=== PATIENT | female | born 1995 | race Caucasian/White ===

== ENCOUNTER 2019-01-21 15:51 | Inpatient (IN) | payer SELFPAY ==
[2019-01-21 17:58] LABS: #Basophils 0.1 thou/uL (0.0-0.2); #Eosinphils 0.1 thou/uL (0.0-0.7); #Lymphocytes 2.6 thou/uL (1.20-3.40); #Monocytes 0.5 thou/uL (0.11-0.59); #Neutrophils 5.2 thou/uL (1.40-6.50); %Eosinophils 1.2 % (0.0-10.0); %Lymphocytes 30.7 % (21.0-51.0); %Monocytes 5.5 % (0.0-10.0); %Neutrophils 61.6 % (42.0-75.0); Hemoglobin 14.5 g/dL (12.0-16.0); Mean Corpuscular HGB CONC 33.6 g/dL (32.0-36.0); Mean Corpuscular Hemoglobin 31.2 pg (27.0-31.0); Mean Platelet Volume 7.2 fL (7.4-10.4); Platelet Count 240 thou/uL (130-400); RBC Distribution Width 12.9 % (11.5-14.5); Red Blood Cell (RBC) Count 4.64 mill/uL (4.20-5.40); White Blood Cell (WBC) Count 8.4 thou/uL (4.8-10.8)
[2019-01-21 18:28] LABS: ALT (SGPT) 421 U/L (8-55); AST (SGOT) 193 U/L (5-34); Acetaminophen Less than 6.0 mcg/mL (10.0-30.0); Albumin 4.7 g/dL (3.5-5.0); Alcohol Less than 10 mg/dL (Less than 10); Alkaline Phosphatase 99 U/L (40-150); Anion Gap 15 mmol/L (10-20); BUN (Urea Nitrogen) 13 mg/dL (7.0-18.7); Bilirubin, Total 1.6 mg/dL (0.2-1.2); Calc. Creatinine Clearance 0 mL/min (70-130); Calcium 9.8 mg/dL (7.8-10.44); Carbon Dioxide 22 mmol/L (22-29); Chloride 106 mmol/L (98-107); Estimated GFR-MDRD 86; Globulin 3.6 g/dL (2.4-3.5); Glucose 93 mg/dL (70-105); Potassium 3.7 mmol/L (3.5-5.1); Protein, Total 8.3 g/dL (6.0-8.3); Salicylate Less than 8.0 mg/dL (15.0-30.0); Sodium 139 mmol/L (136-145)
[2019-01-21] MEDS ORDERED: Ondansetron ODT 4 MG TAB ONE (18:44)
[2019-01-21 19:37] LABS: Bilirubin Negative (Negative); Blood, Urine Negative (Negative); Clarity CLEAR (Clear); Glucose, Urine (Dipstick) Negative (Negative); Leukocyte Negative (Negative); Nitrite Negative (Negative); Protein, Urine (Dipstick) Trace mg/dL (Neg-Trace); Specific Gravity, Urine 1.027 (1.002-1.036)
[2019-01-21 19:43] LABS: Pregnancy Test - Urine (BHCG) Negative (Negative); Pregu Control Background? CLEAR/WHITE (CLR/WHITE); Pregu Control Bar Appear? YES (CONTROL BAR); Specific Gravity 1.027 (1.002-1.036)
[2019-01-21 19:53] LABS: Amphetamine Not Detected (NotDetected); Barbiturates Screen Not Detected (NotDetected); Benzodiazepine Screen Not Detected (NotDetected); Cocaine Metabolite Screen Not Detected (NotDetected); Medtox Control Line Valid? VALID (VALID); Medtox Reader # READER 1; Methadone Not Detected (NotDetected); Methamphetamine Not Detected (NotDetected); Opiate Screen Detected (NotDetected); Oxycodone Screen Not Detected (NotDetected); Phencyclidine (PCP) Not Detected (NotDetected); THC/Cannabinoid Screen Detected (NotDetected); Tricyclic Screen Not Detected (NotDetected)
[2019-01-21] MEDS ORDERED: Nicotine 7 MG PATCH TOP SCH (20:45)
--- NOTE | 2019-01-21 22:45 | HP ---
PRIMARY CARE PHYSICIAN: [facility] Call Admission. REASON FOR ADMISSION: Suicidal ideation, suicidal attempt, abnormal LFTs. HISTORY OF PRESENT ILLNESS: A 23-year-old patient who was initially evaluated at [facility]. The patient had suicidal ideation and suicidal attempt. The patient took about 9 Vicodin last night and also drank vodka. The patient was evaluated at [facility] where she was found with abnormal LFTs. Tylenol level was less than 3, and as per report, the patient might have history of hepatitis C. The patient was not cleared from emergency room because of abnormal LFTs and that is why she was transferred to our hospital. The patient does not have any nausea or vomiting. The patient does not have any abdominal pain, fever, or chills. The patient has intermittent use of Tylenol and alcohol. REVIEW OF SYSTEMS: CONSTITUTIONAL: Negative for weight loss or gain, ability to conduct usual activities. SKIN: Negative for rash, itching. EYES: Negative for double vision, pain. ENT/MOUTH: Negative for nose bleeding, neck stiffness, pain, tenderness. CARDIOVASCULAR: Negative for palpitations, dyspnea on exertion, orthopnea. RESPIRATORY: Negative for shortness of breath, wheezing, cough, hemoptysis, fever or night sweats. GASTROINTESTINAL: Negative for poor appetite, abdominal pain, heartburn, nausea, vomiting, constipation, or diarrhea. GENITOURINARY: Negative for urgency, frequency, dysuria, nocturia. MUSCULOSKELETAL: Negative for pain, swelling. NEUROLOGIC/PSYCHIATRIC: Negative for anxiety, depression. ALLERGY/IMMUNOLOGIC: Negative for skin rash, bleeding tendency. Please see my HPI for pertinent positives and negatives. All other review of systems reviewed and negative except as mentioned in HPI. PAST MEDICAL HISTORY: As per report, the patient might have history of hepatitis C. PAST SURGICAL HISTORY: Reviewed and negative. PAST PSYCHIATRIC HISTORY: Anxiety, depression, bipolar disorder, and schizoaffective disorder. The patient has history of multiple inpatient psychiatric admissions. SOCIAL HISTORY: The patient abuses heroin and methamphetamine. The patient smokes cigarettes almost one pack per day. The patient also drinks alcohol. FAMILY HISTORY: No strong family history of premature coronary artery disease, stroke, or cancer. ALLERGIES: PENICILLIN. CURRENT HOME MEDICATIONS: The patient does not have any prescribed medication. EMERGENCY ROOM COURSE: The patient was given nicotine patch and Zofran. PHYSICAL EXAMINATION: VITAL SIGNS: Currently, blood pressure 121/71, pulse 72, respiratory rate 16, temperature 98.0, and saturation is 98% on room air. Weight 63.5 kg. GENERAL: The patient is currently alert, awake, follows commands. No obvious acute distress. HEENT: Head; normocephalic, atraumatic. Eyes; pupils round, reactive to light. Extraocular muscles intact. No icterus. ENT, oropharynx within normal limits. Moist mucous membranes. No oral lesion. No pharyngeal erythema. No exudate. NECK: Supple. No JVD. No thyromegaly. No carotid bruit. No jugular venous distention. LUNGS: Clear to auscultation without any rhonchi or rales. CARDIAC: S1, S2 regular. No murmur. No gallop. No rub. ABDOMEN: Soft. Bowel sounds present. Nontender. Nondistended. No organomegaly. No mass. No suprapubic tenderness. BACK: Unremarkable. No CVA tenderness. EXTREMITIES: Upper extremities, passive movement of all joints are normal. Lower extremities, no edema. Good distal pulsation. SKIN: No skin rash. HEMATOLOGICAL SYSTEM: No lymphadenopathy. NEUROLOGIC: Nonfocal examination. PSYCHIATRIC: Anxious affect. SIGNIFICANT LABORATORY DATA: CBC; WBC 8.4, hemoglobin 14.5, and platelets 240. BMP; sodium 139, potassium 3.7, chloride 106, carbon dioxide 22, BUN 13, creatinine 0.82, glucose 93, and calcium 9.8. LFTs; bilirubin 1.6, AST 193, ALT 421, alkaline phosphatase 99, and albumin 4.7. TSH 0.74. Urinalysis normal. Urine test negative. Urine drug screen positive for opiates and cannabinoids. Serum drug screen; alcohol level less than 6 and acetaminophen level less than 6. ASSESSMENT: 1. Suicidal ideation with suicidal attempt with intentional drug overdose. 2. Abnormal LFTs. 3. Polysubstance abuse including tobacco abuse, cannabinoid abuse, and alcohol abuse. PLAN: Admission to the hospital. Gastroenterology consultation. Obtain right upper quadrant ultrasound. Check hepatitis A, B, C. Repeat LFTs tomorrow. Gentle IV fluid for hydration. Counseling given to avoid smoking and other illicit drugs. Once LFTs improve, then we will consider [facility] consultation for inpatient psychiatric treatment. Deep venous thrombosis prophylaxis, SCD boots. GI prophylaxis, Pepcid 20 mg p.o. b.i.d. CODE STATUS: The patient is full code. DISPOSITION PLAN: Eventually, the patient will need psychiatric placement upon stabilization. Job ID: [id number]
[2019-01-21] MEDS ORDERED: Senokot S 8.6-50 MG TAB PO PRN (23:13)
[2019-01-21] MEDS ORDERED: Ibuprofen 200 MG TAB PO PRN (23:13)
[2019-01-21] MEDS ORDERED: Loperamide HCl 2 MG CAP PO PRN (23:13)
[2019-01-21] MEDS ORDERED: Guaifenesin DM 100-10/5 ML UDCUP PO PRN (23:13)
[2019-01-21] MEDS ORDERED: Ondansetron PF 4 MG/2 ML Vial IVP PRN (23:13)
[2019-01-21] MEDS ORDERED: Bisacodyl 10 MG SUPP PR PRN (23:13)
[2019-01-21] MEDS: Nicotine 21 MG PATCH TD SCH (23:29)
[2019-01-22 05:30] VITALS: BMI 24.1
[2019-01-22 06:12] LABS: #Basophils 0.1 thou/uL (0.0-0.2); #Eosinphils 0.2 thou/uL (0.0-0.7); #Lymphocytes 2.3 thou/uL (1.20-3.40); #Monocytes 0.5 thou/uL (0.11-0.59); #Neutrophils 3.1 thou/uL (1.40-6.50); %Basophils 1.2 % (0.0-1.0); %Eosinophils 3.9 % (0.0-10.0); %Lymphocytes 37.4 % (21.0-51.0); %Monocytes 7.5 % (0.0-10.0); %Neutrophils 50.1 % (42.0-75.0); Hemoglobin 13.6 g/dL (12.0-16.0); Mean Corpuscular HGB CONC 34.1 g/dL (32.0-36.0); Mean Corpuscular Hemoglobin 31.3 pg (27.0-31.0); Mean Corpuscular Volume 91.7 fL (78.0-98.0); Mean Platelet Volume 7.4 fL (7.4-10.4); Platelet Count 216 thou/uL (130-400); RBC Distribution Width 12.8 % (11.5-14.5); Red Blood Cell (RBC) Count 4.34 mill/uL (4.20-5.40); White Blood Cell (WBC) Count 6.1 thou/uL (4.8-10.8)
[2019-01-22 06:37] LABS: ALT (SGPT) 339 U/L (8-55); AST (SGOT) 134 U/L (5-34); Albumin 4.2 g/dL (3.5-5.0); Alkaline Phosphatase 89 U/L (40-150); Anion Gap 12 mmol/L (10-20); BUN (Urea Nitrogen) 14 mg/dL (7.0-18.7); Bilirubin, Total 2.7 mg/dL (0.2-1.2); Calc. Creatinine Clearance 135 mL/min (70-130); Calcium 9.6 mg/dL (7.8-10.44); Carbon Dioxide 23 mmol/L (22-29); Chloride 107 mmol/L (98-107); Estimated GFR-MDRD Greater than 90; Globulin 3.4 g/dL (2.4-3.5); Glucose 107 mg/dL (70-105); Potassium 3.9 mmol/L (3.5-5.1); Protein, Total 7.6 g/dL (6.0-8.3); Sodium 138 mmol/L (136-145)
[2019-01-22 06:53] LABS: Hep A IgM AB Non-Reactive (NonReactive); Hep A IgM S/CO 0.37 S/CO (0-0.79); Hep B Surf Ag Non-Reactive S/CO (NonReactive); Hepatitis B Core IgM Abs Non-Reactive (NonReactive)
[2019-01-22] MEDS: Ondansetron ODT 4 MG TAB PO PRN ×2 (07:31→20:05)
--- NOTE | 2019-01-22 07:38 | ULT ---
RIGHT UPPER QUADRANT ULTRASOUND: INDICATION: Elevated LFTs. COMPARISON: None. FINDINGS: No focal hepatic lesion is evident. Gallbladder is normal in appearance. No sonographic Steel's si gn is reported. Common bile duct measures 2.5 mm. The right kidney measures 12 x 4 x 4.3 cm. The l iver measured 19.36 cm. The visualized aspects of the pancreas are unremarkable-appearing. IMPRESSION: No sonographic abnormality of the right upper quadrant. POS: BH
[2019-01-22 08:32] LABS: Hep C IgG Ab Reflex HepC Qnt (NonReactive)
[2019-01-22 08:33] LABS: Hep C Index 12.42 S/CO (0-0.79)
[2019-01-22] MEDS ORDERED: Lorazepam 1 MG TAB PO PRN ×2 (08:59→12:17)
[2019-01-22] MEDS: Famotidine 20 MG TAB PO SCH ×2 (09:47→20:00)
[2019-01-22] MEDS ORDERED: WATER IVPB SCH (12:00)
[2019-01-22] MEDS ORDERED: ACETYLCYSTEINE IVPB SCH (12:00)
[2019-01-22] MEDS ORDERED: DEXTROSE 5% IVPB SCH (12:00)
[2019-01-22] MEDS ORDERED: Acetylcysteine 20% (200mg/mL) 3,800 MG in Dextrose 5% in Water 500 ML IV SCH (15:00)
[2019-01-22] MEDS ORDERED: Lorazepam 1 MG TAB PO SCH (15:00)
[2019-01-22] MEDS: Lorazepam 1 MG TAB PO PRN (18:53)
[2019-01-22] MEDS: diphenhydrAMINE 25 MG CAP PO PRN ×2 (20:00→23:43)
[2019-01-22] MEDS ORDERED: Acetylcysteine 20% (200mg/mL) 7,600 MG in Dextrose 5% in Water 1,000 ML IV SCH (20:00)
[2019-01-22] MEDS: Zolpidem Tartrate 5 MG TAB PO PRN (22:06)
--- NOTE | 2019-01-22 22:06 | CON ---
DATE OF CONSULTATION: 01/22/2019 REASON FOR CONSULTATION: Elevated LFTs. CONSULTING PHYSICIAN: Tracie Mccloud MD HISTORY OF PRESENT ILLNESS: The patient is a 23-year-old female with past medical history of bipolar disorder, anxiety, schizoaffective disorder, and possible chronic hepatitis C infection, presenting with elevated LFTs. She states that she was in her usual state of health until approximately 24 to 48 hours ago when she was experiencing increased life stressors in the form of relational problems that she could not adequately cope with. Subsequently, she took 9 Vicodin (unknown strength of either the hydrocodone or acetaminophen) in addition to increased amounts of vodka as part of a suicide attempt. Upon recognizing that this was not the proper way to deal with the situation, she was subsequently evaluated at [facility] where she was found to have abnormal LFTs and subsequently transferred to [facility] for further evaluation. At the current point in time, she does endorse increased mild nausea, presence of hot flashes, diaphoresis, and hematochezia. However, the hematochezia has been characterized as bright red blood per rectum that occurred 2 times over the last month with blood both on the toilet paper and in the toilet and the blood coating the stool. This has not since recurred within the last 1 to 2 weeks and she does have a history of constipation and hemorrhoids. She currently denies any actual vomiting, fever, dysphagia, odynophagia, weight loss , lower extremity edema, ascites, jaundice, or encephalopathy. Of note, upon conferring with the patient, she states that she has had an elevated bilirubin in the past and this has been present since she was a child. REVIEW OF SYSTEMS: A 10-category review of systems was obtained with all responses negative except for the pertinent positives as listed in HPI. PAST MEDICAL HISTORY: As per HPI. PAST SURGICAL HISTORY: None. FAMILY HISTORY: Denies any GI malignancies. SOCIAL HISTORY: She endorses a history of IV heroin and methamphetamine use. She also endorses smoking approximately one pack of cigarettes per day in addition to drinking anywhere between 2 and 5 alcoholic beverages daily. OUTPATIENT MEDICATIONS: None. ALLERGIES: PENICILLIN. PHYSICAL EXAMINATION: VITAL SIGNS: Temperature 98.4, pulse 76, blood pressure 114/71, respiratory rate 20, saturating 99% on room air. GENERAL: The patient was lying in bed, in no acute distress. Alert and oriented x4. HEENT: Normocephalic, atraumatic. NECK: Supple. No JVD or scleral icterus noted. CARDIOVASCULAR: Regular rate and rhythm with no discernible murmurs, gallops, or rubs. RESPIRATORY: Clear to auscultation bilaterally with no discernible wheezes or rales. ABDOMEN: Normoactive bowel sounds. Soft, nondistended, mild tenderness to palpation in the midepigastric region. EXTREMITIES: No cyanosis, clubbing, or edema. LABORATORY DATA: CBC with a white blood cell count of 6.1, hemoglobin 13.6, hematocrit 39.8, platelets 216. Chemistry with a sodium of 138, potassium 3.9, chloride 107, CO2 of 23, BUN 14, creatinine 0.78, glucose 107, AST 134, ALT 339, alkaline phosphatase 89, total bilirubin 2.7, albumin 4.2, lipase 37. IMAGING DATA: Right upper quadrant abdominal ultrasound was obtained on January 22, 2019, which showed a normal gallbladder as well as the common bile duct measuring 2.5 mm in size. There were no other findings during this particular study. ASSESSMENT AND PLAN: The patient is a 23-year-old female with past medical history of bipolar disorder, anxiety, schizoaffective disorder, and chronic hepatitis C infection, presenting with acute acetaminophen ingestion and possible toxicity. Elevated liver function tests/acetaminophen ingestion. The patient is presenting with a recent history of increased life stressors that prompted her to take a undetermined amount of acetaminophen contained within the presence of Vicodin (she obtained off the street, so it is unknown how much acetaminophen was contained within these pills). Upon evaluation in the [place] [facility], she was given a dose of N-acetylcysteine, but noted to have significantly elevated liver function tests. Based on the degree of elevation of her liver function tests, it seems to be more elevated than expected for chronic hepatitis C infection alone. Given that information acetaminophen toxicity and/or other underlying liver abnormalities could be potentially contributing to this elevation. They are currently downtrending, which lends credence more towards a medication or drug-induced liver injury. Per guidelines given the recent ingestion of acetaminophen associated with any significant liver injury, the use of N-acetylcysteine is indicated. RECOMMENDATIONS: 1. We would continue to trend LFTs and INR daily to determine response to treatment and/or possible worsening hepatic function. 2. We would continue to monitor neurological status daily as encephalopathy could be a harbinger of worsening hepatic function. 3. We will follow up on HIV serology that has already been drawn. If her liver function tests do not continue to fall, then I would consider a full liver workup. 4. We would obtain a direct bilirubin for possible Gilbert syndrome. 5. We would continue N-acetylcysteine in IV format over the 21 hour protocol given her acute liver injury in association with significant acetaminophen ingestion. 6. We will continue to follow. Please call with any questions. Job ID: [id number]
--- NOTE | 2019-01-22 22:44 | PDOC.PN ---
- Subjective Encounter Start Date: 01/22/19 Encounter Start Time: 13:30 Patient seen and examined for drug overdose. Anxious. Wants to leave AMA. No new complaints. No overnight events - Objective Resuscitation Status - Order Detail: 01/21/19 22:18 Resuscitation Status Routine Resuscitation Status: FULL: Full Resuscitation MAR Reviewed: Yes Vital Signs & Weight: Vital Signs (12 hours) Temp Pulse Resp BP Pulse Ox 01/22/19 19:00 98 F 79 16 111/74 99 01/22/19 15:40 98.4 F 76 20 114/71 99 01/22/19 11:54 98.5 F 77 16 122/80 100 Weight Weight 168 lb 6 oz I&O: 01/21/19 01/22/19 01/23/19 06:59 06:59 06:59 Intake Total 450 Balance 450 Result Diagrams: 01/23/19 04:25 01/23/19 04:25 Additional Labs: Laboratory Tests 01/22/19 05:55 Total Bilirubin 2.7 H AST 134 H ALT 339 H Radiology Reviewed by me: Yes (RUQ USG - neg) Phys Exam - Physical Examination Constitutional: NAD Neck: no JVD Respiratory: no wheezing, no rales, no rhonchi, clear to auscultation bilateral Cardiovascular: RRR, no rub no heaves/pulsations Gastrointestinal: soft, non-tender, no distention, positive bowel sounds Musculoskeletal: no edema Neurological: non-focal, normal sensation, moves all 4 limbs Psychiatric: normal affect, A&O x 3 Dx/Plan - Plan DVT proph w/SCDs IMPRESSION: Drug overdose/Suicidal attempt Abn LFTs ?Chronic Hep C Cannabis/tobacco/alcohol abuse Anxiety PLAN: Mucomyst protocol initiated per GI Avoid hepatotoxic meds Add Ativan PRN HIV testing in AM Hep C PCR sent AM labs Cont Sitter MR eval when stable Review of Systems - Review of Systems Respiratory: negative: Cough, Dry, Shortness of Breath, Hemoptysis, SOB with Excertion, Pleuritic Pain, Sputum, Wheezing Cardiovascular: negative: chest pain, palpitations, orthopnea, paroxysmal nocturnal dyspnea, edema, light headedness, other Gastrointestinal: negative: Nausea, Vomiting, Abdominal Pain, Diarrhea, Constipation, Melena, Hematochezia, Other Genitourinary: negative: Dysuria, Frequency, Incontinence, Hematuria, Retention , Other - Medications/Allergies Allergies/Adverse Reactions: Allergies Allergy/AdvReac Type Severity Reaction Status Date / Time Penicillins Allergy Severe Anaphylaxis Verified 01/22/19 05:09 adhesive AdvReac Mild Rash Verified 01/22/19 05:08 Medications: Current Medications Bisacodyl (Dulcolax) 10 mg [place] DAILYPRN PRN PRN Reason: Constipation Diphenhydramine HCl (Benadryl) 25 mg PO Q4H PRN PRN Reason: Itching Last Admin: 01/22/19 20:00 Dose: 25 mg Famotidine (Pepcid) 20 mg PO BID [facility] Last Admin: 01/22/19 20:00 Dose: 20 mg Guaifenesin/Dextromethorphan (Robitussin Dm) 15 ml PO Q4H PRN PRN Reason: Cough Acetylcysteine 7,600 mg/ (Dextrose/Water) 1,038 mls @ 64.875 mls/hr IV ONE [facility] Stop: 01/23/19 12:00 Ibuprofen (Motrin) 400 mg PO Q6H PRN PRN Reason: Fever>101/(Mi/Mod/Sev) Pain Loperamide HCl (Imodium) 2 mg PO PRN PRN PRN Reason: Diarrhea/Loose Stools Lorazepam (Ativan) 0.5 mg PO Q4H PRN PRN Reason: Anxiety Stop: 01/23/19 09:00 Last Admin: 01/22/19 18:53 Dose: 0.5 mg Nicotine (Nicoderm Patch) 21 mg TD Q24HR [facility] Last Admin: 01/21/19 23:29 Dose: 21 mg Ondansetron HCl (Zofran Odt) 4 mg PO Q6H PRN PRN Reason: Nausea/Vomiting Last Admin: 01/22/19 20:05 Dose: 4 mg Ondansetron HCl (Zofran) 4 mg IVP Q6H PRN PRN Reason: Nausea/Vomiting Senna/Docusate Sodium (Senokot S) 2 tab PO BID PRN PRN Reason: Constipation Sodium Chloride (Flush - Normal Saline) 10 ml IVF Q12HR AC Sodium Chloride (Flush - Normal Saline) 10 ml IVF PRN PRN PRN Reason: Saline Flush Zolpidem Tartrate (Ambien) 5 mg PO HSPRN PRN PRN Reason: Insomnia Last Admin: 01/22/19 22:06 Dose: 5 mg
[2019-01-22] MEDS: Nicotine 21 MG PATCH TD SCH (23:41)
[2019-01-23] MEDS: Lorazepam 1 MG TAB PO PRN ×4 (04:55→17:48)
[2019-01-23 05:18] LABS: Hemoglobin 13.7 g/dL (12.0-16.0); Platelet Count 207 thou/uL (130-400)
[2019-01-23 05:21] LABS: INR-International Normal Ratio 1.1; Prothrombin Time 14.2 SEC (12.0-14.7)
[2019-01-23 05:44] LABS: ALT (SGPT) 275 U/L (8-55); AST (SGOT) 90 U/L (5-34); Albumin 4.1 g/dL (3.5-5.0); Alkaline Phosphatase 75 U/L (40-150); Anion Gap 12 mmol/L (10-20); BUN (Urea Nitrogen) 14 mg/dL (7.0-18.7); Bilirubin, Direct 0.7 mg/dL (0.1-0.3); Bilirubin, Total 2.5 mg/dL (0.2-1.2); Calc. Creatinine Clearance 139 mL/min (70-130); Calcium 9.5 mg/dL (7.8-10.44); Carbon Dioxide 25 mmol/L (22-29); Chloride 106 mmol/L (98-107); Estimated GFR-MDRD Greater than 90; Glucose 97 mg/dL (70-105); Magnesium 2.2 mg/dL (1.6-2.6); Potassium 3.9 mmol/L (3.5-5.1); Protein, Total 7.3 g/dL (6.0-8.3); Sodium 139 mmol/L (136-145)
[2019-01-23 06:00] LABS: HIV (1/2) Antibody/Antigen Non-Reactive (NonReactive); HIV 1/2 INDEX 0.11 S/CO (<1.00)
[2019-01-23] MEDS ORDERED: Dextrose 5 %-0.45 % NaCl 1,000 ML IV SCH (07:45)
[2019-01-23] MEDS: Dextrose 5 %-0.45 % NaCl 1,000 ML IV SCH ×2 (09:12→20:43)
[2019-01-23] MEDS: Famotidine 20 MG TAB PO SCH ×2 (09:16→20:42)
[2019-01-23] MEDS: diphenhydrAMINE 25 MG CAP PO PRN ×2 (12:48→20:41)
--- NOTE | 2019-01-23 16:21 | PRG ---
DATE OF SERVICE: 01/23/2019 REASON FOR CONSULTATION: Elevated LFTs. SUBJECTIVE: Overnight, the patient did well with administration of Ambien, was able to get a good night's sleep today. Today, she states that she continues to feel restless/anxious, but otherwise has denied any other symptoms. Currently, denies any nausea, vomiting, fevers, chills, abdominal pain, GI bleeding, jaundice, encephalopathy, ascites, or lower extremity edema. OBJECTIVE: VITAL SIGNS: Temperature 98.5, pulse 87, blood pressure 118/72, respiratory rate 18, saturating 99% on room air. GENERAL: The patient was lying in bed, in no acute distress. Alert and oriented x4. CARDIOVASCULAR: Regular rate and rhythm. RESPIRATORY: Clear to auscultation bilaterally. ABDOMEN: Normoactive bowel sounds. Soft, nontender, nondistended. EXTREMITIES: No cyanosis, clubbing, or edema. LABORATORY DATA: CBC with a hemoglobin of 13.7, hematocrit 40.5. INR 1.1. Chemistry with a sodium of 139, potassium 3.9, chloride 106, CO2 of 25, BUN 14, creatinine 0.76. AST 90, ALT 275, alkaline phosphatase 75, total bilirubin 2.5. HIV negative. IMAGING DATA: No current GI imaging is available for review. ASSESSMENT AND PLAN: The patient is a 23-year-old female with past medical history of bipolar disorder, anxiety, schizoaffective disorder, and chronic hepatitis C infection, presenting with acute acetaminophen ingestion and possible toxicity. Elevated liver function tests/acetaminophen ingestion. The patient presented with a recent history of increased life stressors that prompted her to take an increased amount of acetaminophen in the form of Vicodin. However, upon evaluation by [facility], she was noted to have significantly elevated LFTs and was subsequently transferred to [facility]. During this hospitalization, her LFTs have continued to downtrend with treatment with N-acetylcysteine and she is currently, relatively asymptomatic at this time. Given that all of her LFTs are currently downtrending, the likely etiology for her elevated LFTs may have been a combination of the acetaminophen toxicity mixed with alcohol ingestion on top of chronic hepatitis C infection. RECOMMENDATIONS: 1. Would continue to trend LFTs and INR daily to determine response to treatment. 2. We will continue to monitor neurological status daily as encephalopathy could be a harbinger of worsening hepatic function. 3. Would complete 21-hour protocol for N-acetylcysteine in this patient with acute liver injury associated with increased acetaminophen ingestion. 4. From a GI standpoint, the transition to [facility] can be started with the patient discharged as early as tomorrow. We will sign off at this time. Please call with any questions. Job ID: [id number]
[2019-01-23 17:27] LABS: INR-International Normal Ratio 1.1; PTT 29.2 SEC (22.9-36.1)
[2019-01-23 17:47] LABS: ALT (SGPT) 305 U/L (8-55); AST (SGOT) 97 U/L (5-34); Acetaminophen Less than 6.0 mcg/mL (10.0-30.0); Albumin 4.7 g/dL (3.5-5.0); Alkaline Phosphatase 87 U/L (40-150); Bilirubin, Direct 0.8 mg/dL (0.1-0.3); Bilirubin, Total 2.4 mg/dL (0.2-1.2); Protein, Total 8.4 g/dL (6.0-8.3)
[2019-01-23] MEDS ORDERED: Nicotine 14 MG PATCH TD PRN (19:17)
[2019-01-23] MEDS ORDERED: Loperamide HCl 2 MG CAP PO PRN (19:17)
[2019-01-23] MEDS: Zolpidem Tartrate 5 MG TAB PO PRN (22:13)
--- NOTE | 2019-01-23 22:21 | PDOC.PN ---
- Subjective Encounter Start Date: 01/23/19 Encounter Start Time: 18:00 Patient seen and examined for drug overdose. Feeling better. No N/V/Abd pain. No new complaints. No overnight events - Objective Resuscitation Status - Order Detail: 01/21/19 22:18 Resuscitation Status Routine Resuscitation Status: FULL: Full Resuscitation MAR Reviewed: Yes Vital Signs & Weight: Vital Signs (12 hours) Temp Pulse Resp BP Pulse Ox 01/23/19 21:00 97.4 F L 95 18 106/70 98 01/23/19 12:30 98.5 F 87 118/72 99 Weight Weight 168 lb 6 oz I&O: 01/22/19 01/23/19 01/24/19 06:59 06:59 06:59 Intake Total 450 1460 Balance 450 1460 Result Diagrams: 01/23/19 04:25 01/23/19 04:25 Radiology Reviewed by me: No (Abd USG - reviewed) Phys Exam - Physical Examination Constitutional: NAD Respiratory: no wheezing, no rhonchi Cardiovascular: RRR, no rub Gastrointestinal: soft, non-tender, positive bowel sounds Musculoskeletal: no edema Neurological: moves all 4 limbs Dx/Plan - Plan DVT proph w/SCDs IMPRESSION: Drug overdose/Suicidal attempt s/p Mucomyst protocol Abn LFTs ?Chronic Hep C Cannabis/tobacco/alcohol abuse Anxiety PLAN: Cont Sitter [facility] eval Stable for dc DC IVF at dc Review of Systems - Medications/Allergies Allergies/Adverse Reactions: Allergies Allergy/AdvReac Type Severity Reaction Status Date / Time Penicillins Allergy Severe Anaphylaxis Verified 01/22/19 05:09 adhesive AdvReac Mild Rash Verified 01/22/19 05:08 Medications: Current Medications Bisacodyl (Dulcolax) 10 mg [place] DAILYPRN PRN PRN Reason: Constipation Diphenhydramine HCl (Benadryl) 25 mg PO Q4H PRN PRN Reason: Itching Last Admin: 01/23/19 20:41 Dose: 25 mg Famotidine (Pepcid) 20 mg PO BID [facility] Last Admin: 01/23/19 20:42 Dose: 20 mg Guaifenesin/Dextromethorphan (Robitussin Dm) 15 ml PO Q4H PRN PRN Reason: Cough Dextrose/Sodium Chloride (D5 1/2 Ns) 1,000 mls @ 70 mls/hr IV .[id number] [facility] Last Admin: 01/23/19 20:43 Dose: 1,000 mls Ibuprofen (Motrin) 400 mg PO Q6H PRN PRN Reason: Fever>101/(Mi/Mod/Sev) Pain Loperamide HCl (Imodium) 2 mg PO PRN PRN PRN Reason: Diarrhea/Loose Stools Loperamide HCl (Imodium) 2 mg PO PRN PRN PRN Reason: Diarrhea/Loose Stools Lorazepam (Ativan) 0.5 mg PO Q4H PRN PRN Reason: Anxiety Stop: 01/24/19 09:00 Last Admin: 01/23/19 17:48 Dose: 0.5 mg Nicotine (Nicoderm Patch) 14 mg TD Q24HR PRN PRN Reason: Smoking craving Ondansetron HCl (Zofran Odt) 4 mg PO Q6H PRN PRN Reason: Nausea/Vomiting Last Admin: 01/22/19 20:05 Dose: 4 mg Ondansetron HCl (Zofran) 4 mg IVP Q6H PRN PRN Reason: Nausea/Vomiting Senna/Docusate Sodium (Senokot S) 2 tab PO BID PRN PRN Reason: Constipation Sodium Chloride (Flush - Normal Saline) 10 ml IVF Q12HR [facility] Last Admin: 01/23/19 22:18 Dose: Not Given Sodium Chloride (Flush - Normal Saline) 10 ml IVF PRN PRN PRN Reason: Saline Flush Zolpidem Tartrate (Ambien) 5 mg PO HSPRN PRN PRN Reason: Insomnia Last Admin: 01/23/19 22:13 Dose: 5 mg
[2019-01-24] MEDS: Lorazepam 1 MG TAB PO PRN ×2 (04:24→08:06)
[2019-01-24 04:52] LABS: ALT (SGPT) 252 U/L (8-55); AST (SGOT) 87 U/L (5-34); Albumin 4.1 g/dL (3.5-5.0); Alkaline Phosphatase 76 U/L (40-150); Bilirubin, Direct 0.6 mg/dL (0.1-0.3); Bilirubin, Total 1.5 mg/dL (0.2-1.2); Protein, Total 7.2 g/dL (6.0-8.3)
[2019-01-24] MEDS: Famotidine 20 MG TAB PO SCH ×2 (08:06→21:08)
[2019-01-24] MEDS ORDERED: Lorazepam 0.5 MG TAB PO PRN (09:01)
[2019-01-24] MEDS ORDERED: Ziprasidone 20 MG CAP PO SCH (11:30)
[2019-01-24] MEDS ORDERED: Lorazepam 1 MG TAB PO PRN (20:58)
[2019-01-24] MEDS: diphenhydrAMINE 25 MG CAP PO PRN (21:08)
[2019-01-24 22:31] VITALS: BP 105/68; TEMP 98
--- NOTE | 2019-01-25 07:24 | DIS ---
DATE OF ADMISSION: 01/21/2019 DATE OF DISCHARGE: 01/24/2019 DISCHARGE DISPOSITION: Inpatient psych facility. ALLERGIES: PENICILLIN AND ADHESIVE. THE PATIENT WAS SEEN ON THE DAY OF DISCHARGE. DENIES ANY NEW COMPLAINTS. INPATIENT PUBLIC RELATIONS COUNSELOR: Gastroenterology, Dr. Washburn. Repeat LFTs after 1 week is recommended. BRIEF HOSPITAL COURSE: The patient is a 23-year-old female who was brought in after a suicidal overdose with Vicodin along with alcohol. Please refer to the history and physical for further details. The patient was admitted to the medical floor with a diagnosis of drug overdose. She was started on Mucomyst protocol per GI recommendation. Initial total bilirubin on admission was 2.7, that improved to 1.5 at discharge. AST, ALT has also improved. Acute hepatitis profile was positive for hepatitis C antibody. Hepatitis C PCR is pending at this time. Primary care physician advised to follow. HIV testing was negative. Urine drug screen was positive for opiates and cannabinoids. She was evaluated by [facility] who recommended inpatient psychiatric admission. DIAGNOSTIC TEST: Abdominal ultrasound was negative for gallbladder etiology. There was no focal hepatic lesion. FINAL DIAGNOSES: 1. Suicidal drug overdose with Vicodin along with alcohol. 2. Abnormal LFTs secondary to #1. 3. History of chronic hepatitis C. Hepatitis C PCR is sent. Primary care physician advised to follow. 4. Tobacco, alcohol and cannabis abuse. 5. Anxiety. PLAN: Plan of care was discussed with the patient. Job ID: [id number]
[2019-01-25] MEDS ORDERED: Ziprasidone 20 MG CAP PO SCH (08:00)
== END 2019-01-24 21:55 | DRG 918 ==
LOC: ERS 15:51 → SJJU 23:14
PROVIDERS: ADMIT Internal Medicine; ATTEND Internal Medicine
DX: T39.1X2A Poisoning by 4-Aminophenol derivatives, intentional self-harm, initial encounter (principal); T51.0X2A Toxic effect of ethanol, intentional self-harm, initial encounter; B18.2 Chronic viral hepatitis C; F17.200 Nicotine dependence, unspecified, uncomplicated; F10.10 Alcohol abuse, uncomplicated; F12.10 Cannabis abuse, uncomplicated; F41.9 Anxiety disorder, unspecified; F31.9 Bipolar disorder, unspecified; F25.9 Schizoaffective disorder, unspecified; Z88.0 Allergy status to penicillin
CPT/HCPCS: 36415; 76705; 80048; 80053; 80074; 80076; 80306; 80307; 81003; 81025; 82550; 83690; 83735; 84443; 85025; 85610; 85730; 87389; 87522; J0132; J7070; Q0162; Q0163